=== PATIENT | female | born 1960 | race Caucasian/White ===

== ENCOUNTER 2016-09-16 13:13 | Inpatient (IN) | payer BC ==
[~2016-09-16] VITALS: Ht 162.6 cm; Wt 103.0 kg
[~2016-09-16 13:13] MED LIST: ACET-1256 PO; ASPEC81 PO; BOSW1TAB3 PO; CHOL1000 PO; CINN500T PO; CLON1TAB3 PO; CRAN500C2 PO; ESCI1TAB10 PO; FLUT0.15 NAE; LEVO100T7 PO; LPT40 PO; MULT-506 PO; OMEG10002 PO; PRT/20 PO
[2016-09-16 20:09] VITALS: BP 92/71; PULSE 71; TEMP 36.7; O2SAT 94; Ht 162.6 cm; Wt 103.0 kg
[2016-09-16] MEDS ORDERED: FLUTICASONE PROPIONATE NA SPR 16 GM BTL NAE PRN (20:15)
[2016-09-16] MEDS ORDERED: LEVALBUTEROL/IPRATROPIUM NEB INH PRN (20:15)
[2016-09-16] MEDS ORDERED: MAGNESIUM HYDROXIDE SUSP 30 ML UDC PO PRN (20:15)
[2016-09-16] MEDS ORDERED: POLYETHYLENE (MIRALAX) 17 GM PACK PO PRN (20:15)
[2016-09-16] MEDS ORDERED: ONDANSETRON INJ 2 MG/ML 2 ML VIAL IV PRN (20:15)
[2016-09-16] MEDS ORDERED: NITROGLYCERIN 0.4 MG SL PER TAB CHARGE SL PRN (20:15)
[2016-09-16] MEDS ORDERED: ALUMINUM/MAGNESIUM/SIMETH (MAALOX MAX) 30 ML UDC PO PRN (20:15)
[2016-09-16] MEDS ORDERED: ACETAMINOPHEN 325 MG TAB PO PRN (20:15)
[2016-09-16] MEDS ORDERED: TOPI25TA55 PO ×2 (20:23→20:34)
[2016-09-16] MEDS ORDERED: ALBINS/ INH (20:23)
[2016-09-16] MEDS ORDERED: CLON1TAB3 PO (20:23)
[2016-09-16] MEDS ORDERED: LEVO112T4 PO (20:25)
[2016-09-16] MEDS ORDERED: MAGN1TAB19 PO (20:34)
[2016-09-16] MEDS ORDERED: MECL-91 PO (20:34)
[2016-09-16] MEDS ORDERED: LEVOFLOXACIN 750 MG TAB PO ONE (20:45)
[2016-09-16] MEDS ORDERED: MECLIZINE HCL 25 MG TAB PO PRN (20:45)
[2016-09-16] MEDS ORDERED: IPRATROPIUM BROMIDE NEB SOLN 0.02% 2.5 ML VIAL INH PRN (20:45)
[2016-09-16] MEDS ORDERED: LEVALBUTEROL 0.63MG/3 ML NEB INH PRN (20:45)
[2016-09-16] MEDS ORDERED: ACETAMINOPHEN 500 MG TAB PO PRN (20:45)
[2016-09-16] MEDS ORDERED: TOPIRAMATE 25 MG TAB PO SCH (21:00)
[2016-09-16] MEDS ORDERED: LEVALBUTEROL/IPRATROPIUM NEB INH SCH (21:00)
[2016-09-16] MEDS ORDERED: CLONAZEPAM 1 MG TAB PO SCH (21:00)
--- NOTE | 2016-09-16 21:03 | HISTORY & PHYSICAL EXAMINATION ---
DATE OF ADMISSION: 09/16/2016 CHIEF COMPLAINT: Shortness of breath. 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 The patient says since last Friday, she noticed short of breath and cough with yellowish phlegm, feeling hot. She went to family doctor and she was put on albuterol nebulization, prednisone taper and doxycycline and was sent home and she felt fine for a couple of days and again on Friday, she got again more progressive short of breath and she went to [facility] and she was admitted and she was treated with antibiotics, Z-VAN and steroids and breathing treatments and a CT angiogram of the chest was done on 09/13/2016 which was unremarkable. She has a history of pulmonary nodules, but there was no nodule seen on the CAT scan and there was no PE. The patient started to feel better, but again today morning, again got more short of breath and was advised to come to the [facility] as there is no pulmonary in [facility]. The patient was transferred here. The patient currently resting comfortable. She still has some cough. No fever, no chills, has some headaches when she coughs, no dizziness and some chest pain while she is coughing. No nausea, no vomiting, no abdominal pain. Normal bowel and bladder movements. Appetite is okay. Currently, resting comfortable and hemodynamically stable. ALLERGIES: MELOXICAM. PAST MEDICAL HISTORY: As mentioned above. PAST SURGICAL HISTORY: Bunion surgery, carpal tunnel surgery, colonoscopy, and laparoscopic cholecystectomy. MEDICATIONS: The patient is on prednisone taper ,doxycycline, albuterol nebulization every 4 hours p.r.n., levothyroxine 112 mcg p.o. daily, Protonix 20 mg p.o. daily, Klonopin 0.5 mg in a.m. and 1 mg before bed, Topamax 50 mg at bedtime 25mg tablet in the morning, riboflavin 100 mg p.o. daily, magnesium oxide 400 mg p.o. daily, Antivert 25 mg p.o. t.i.d. p.r.n., aspirin 81 mg p.o. daily, Lexapro 20 mg p.o. daily, multivitamin 1 tablet p.o. daily, fish oil 1000 mg p.o. daily. FAMILY HISTORY: Significant for mother had of cancer. Father of lung cancer. Sister has thyroid problems. Brother has thyroid problems. SOCIAL HISTORY: , never smoked. No alcohol use. No drug use. REVIEW OF SYMPTOMS: As per HPI. Rest of symptoms negative. PHYSICAL EXAMINATION: GENERAL: The patient is of moderate build, not in distress. VITAL SIGNS: Unavailable at this time. HEENT: No pallor, no icterus. Pupils equal, round, reactive to light. NECK: No JVD, no neck masses, no carotid bruits. CARDIOVASCULAR: S1, S2 heard, regular rate and rhythm, no murmur, no gallop. RESPIRATORY SYSTEM: Normal AP diameter. No accessory muscle use. Mild occasional expiratory wheezing, no crackles. ABDOMEN: Soft, bowel sounds present. Nontender. No distention. CENTRAL NERVOUS SYSTEM: Cranial nerves II-XII grossly intact. Nonfocal. EXTREMITIES: No edema, no erythema. LABORATORY DATA: Labs done at [facility] today morning shows WBC of 13, hemoglobin 14.6, hematocrit 43.8, platelets 252. Sodium 142, potassium 4.2, chloride 106, bicarbonate 27, calcium 0.8, BUN 19, creatinine 0.8, glucose 84. ASSESSMENT AND PLAN: This is a 56-year-old female who presents with shortness breath or cough and wheezing. 1. Shortness of breath, cough and wheezing. No history of asthma. No history of smoking . Has some exposure to passive smoking, no exposure to any fumes. She has a history of pulmonary nodules in the CAT scans in June 2016 , but she had another CAT scan done in [facility] on 09/13/2016, which was unremarkable and there was no PE. She also had a cardiac catheterization recently at [facility], which was unremarkable. The patient has some mild expiratory wheezing could be bronchitis. We will place her on IV Solu-Medrol, Levaquin and nebulizers around the clock and p.r.n. Will also get a chest x-ray and EKG and consult pulmonary in the a.m. for further recommendations. 2. Hypothyroidism. Continue her home medication of Synthroid. 3. Depression and generalized anxiety disorder. Continue home medications of Lexapro and Klonopin. 4. History of complex migraine. Continue Topamax. 5. Gastroesophageal reflux disease. Continue Protonix. 6. Deep vein thrombosis prophylaxis. Heparin subQ. 7. Disposition: Monitor on tele floor. Expect to discharge home and follow with the family doctor. Level 1 full code. MTDD
[2016-09-16] MEDS: METHYLPREDNISOLONE IV 40 MG in SYRINGE 0 ML IV SCH (21:06)
[2016-09-16 21:10] VITALS: PULSE 63; O2SAT 98
[2016-09-16] MEDS: IPRATROPIUM BROMIDE NEB SOLN 0.02% 2.5 ML VIAL INH SCH (21:10)
[2016-09-16] MEDS: LEVALBUTEROL 1.25MG/0.5ML NEB INH SCH (21:10)
[2016-09-16 21:21] LABS: HEMATOCRIT 43.6 % (37-47); MEAN CORPUSCULAR HEMOGLOBIN 28.5 pg (25-34); MEAN CORPUSCULAR HGB CONC 32.8 g/dl (32-36); MEAN PLATELET VOLUME 10.3 fL (7.4-10.4); PLATELET COUNT 254 K/uL (130-400); RED BLOOD COUNT 5.01 M/uL (4.2-5.4); WHITE BLOOD COUNT 10.67 K/uL (4.8-10.8)
[2016-09-16] MEDS ORDERED: PNEUMOCOCCAL POLYSACCHARIDES 25 MCG/0.5 ML VIAL/SYR IM. ONE (21:30)
[2016-09-16] MEDS ORDERED: PNEUMOCOCCAL ADMINISTRATION CHARGE ONE (21:30)
[2016-09-16 21:32] LABS: PARTIAL THROMBOPLASTIN RATIO 0.9; PROTHROMBIN TIME (PATIENT) 10.5 SECONDS (9.0-12.0)
[2016-09-16 21:47] LABS: CREATININE 0.94 mg/dl (0.60-1.20)
--- NOTE | 2016-09-16 22:09 | DIAGNOSTIC IMAGING REPORT ---
SINGLE VIEW CHEST CLINICAL HISTORY: Cough and dyspnea. FINDINGS: An AP, portable, upright chest radiograph is compared to study dated 01/28/2016. The examination is degraded by portable technique, large body habitus, and patient rotation. The cardiomediastinal silhouette is unremarkable. There is mild bibasilar atelectasis. The lungs and pleural spaces are otherwise clear. No pneumothorax is seen. The skeletal structures are osteopenic. The bony thorax is grossly intact. Cholecystectomy clips are identified in the right upper quadrant. IMPRESSION: No active disease in the chest. Electronically signed by: Bertin Ravi M.D. 09/16/2016 10:08 PM Dictated Date/Time: 09/16/2016 10:07 PM
[2016-09-16 23:46] VITALS: BP 121/78; PULSE 65; TEMP 37.3; O2SAT 95
[2016-09-17] VITALS (7 sets, daily range): BP systolic 98–115; BP diastolic 61–93; PULSE 65–93; TEMP 36.5–36.9; O2SAT 91–98
[2016-09-17] MEDS: IPRATROPIUM BROMIDE NEB SOLN 0.02% 2.5 ML VIAL INH SCH ×3 (01:49→14:09)
[2016-09-17] MEDS: LEVALBUTEROL 1.25MG/0.5ML NEB INH SCH ×3 (01:49→14:09)
[2016-09-17 05:59] LABS: BASO % 0.3 %; BASO ABS # 0.04 K/uL (0-0.2); COMPLETE YES; HEMATOCRIT 45.6 % (37-47); IG% 3.8 %; LYMPH % 8.6 %; LYMPH ABS # 1.02 K/uL (1.2-3.4); MEAN CELL VOLUME 87.7 fL (80-100); MEAN CORPUSCULAR HGB CONC 33.1 g/dl (32-36); MEAN PLATELET VOLUME 10.6 fL (7.4-10.4); MONO % 3.9 %; NEUT % 83.4 %; PLATELET COUNT 246 K/uL (130-400); WHITE BLOOD COUNT 11.85 K/uL (4.8-10.8)
[2016-09-17] MEDS ORDERED: LEVOTHYROXINE 112 MCG TAB PO SCH (06:00)
[2016-09-17 06:42] LABS: BUN/CREATININE RATIO 23.7 (10-20); CREATININE 0.83 mg/dl (0.60-1.20); MAGNESIUM 2.7 mg/dl (1.8-2.4)
[2016-09-17] MEDS: METHYLPREDNISOLONE IV 40 MG in SYRINGE 0 ML IV SCH (08:40)
[2016-09-17] MEDS ORDERED: CLONAZEPAM 0.5 MG TAB PO SCH (09:00)
[2016-09-17] MEDS ORDERED: ASPIRIN 81 MG ECTAB PO SCH (09:00)
[2016-09-17] MEDS ORDERED: ATORVASTATIN 40 MG TAB PO SCH (09:00)
[2016-09-17] MEDS ORDERED: ESCITALOPRAM OXALATE 20 MG TAB PO SCH (09:00)
[2016-09-17] MEDS ORDERED: HEPARIN SOD 5000 UNIT/0.5 ML CARP SQ SCH (09:00)
[2016-09-17] MEDS ORDERED: MAGNESIUM OXIDE 400 MG TAB PO SCH (09:00)
[2016-09-17] MEDS ORDERED: OMEGA-3 (PURIFIED FISH OIL) 1 GM CAP PO SCH (09:00)
[2016-09-17] MEDS ORDERED: MULTIVITAMIN TAB PO SCH (09:00)
[2016-09-17] MEDS ORDERED: TOPIRAMATE 25 MG TAB PO SCH (09:00)
[2016-09-17] MEDS ORDERED: CHOLECALCIFEROL 1000 INTER.UNIT TAB PO SCH (09:00)
[2016-09-17] MEDS ORDERED: PANTOprazole SOD 40 MG TAB PO SCH (09:00)
--- NOTE | 2016-09-17 12:17 | Consultant Recommendations ---
Dermatologist And Dermatopathologist Recommendations Date of Service September 17, 2016. Dermatologist And Dermatopathologist Recommendations Followup at clinic in [place] at [facility] on October 07 at 12:00. Nebulizer BID routinely and then prn. Prednisone starting at 60 mg and tapering by 5 mg every 2 days. Off work until Friday09-23-16. PFT as an outpatient.
--- NOTE | 2016-09-17 13:16 | CONSULTATION REPORT ---
DATE OF CONSULTATION: 09/17/2016 DATE OF CONSULTATION: 09/17/2016. REASON FOR CONSULTATION: Asthma exacerbation. HISTORY OF PRESENT ILLNESS: The patient is a 56-year-old female who does not really had any significant pulmonary past medical history. She did have a pulmonary nodule discovered on a CAT scan in June of this year. She did see Sole Wiley, certified registered nurse practitioner with [facility] for evaluation for this. This was a one-time visit. She has not had any followup with her. The patient reports that approximately 2 weeks ago she started with increased shortness of breath, increased cough, congestion and feeling warmth. She eventually presented to [facility] Emergency Room and was admitted to [facility]. She was started on IV steroids, IV antibiotics and aggressive pulmonary treatment. She started to improve and on 09/12/2016 she was feeling well, was converted over to oral prednisone. However, she worsened fairly quickly and hospitalization was continued. She ended up having a CT angiogram done on 09/13/2016, there is no evidence of nodule, no evidence of PE, no abnormality. Because of her persistent symptoms on 09/16/2016 patient was transferred to [facility] for further evaluation and pulmonary workup. The patient states that when she was at [facility] she was on azithromycin, steroids and nebulizer and nebulizer was in the form of albuterol that she remembers. She states that she got here yesterday and had significant coughing and actually coughed up at her estimation about half cup of very thick, almost hard junk from her chest. She states that following that her breathing has been very good. She states that prior to that she was only ever able to cough up small amounts of a watery thin yellow mucus. She states that after she was able to cough up a large amount of mucus her wheezing improved, her shortness of breath improved and she was much better. She states that she has been up walking around today. She has been doing activity without any difficulty. She has not had any oxygen on and her oxygen saturations have been remaining in the 95-98% range. The patient reports also that she was having some chest pain on the left side when she would take a deep breath in and would cough. She states that the chest pain has resolved as well. She no longer has fever, chills, no sweats. She no longer has any other difficulty. She feels that she is back to her baseline. In regards to cardiac history she has had the shortness of breath and chest pain for several weeks. She did have a cardiac workup including a stress test which showed some abnormality. She ended up having a cardiac catheterization at [facility] with Dr. Ayon. This was unremarkable. She also had an echocardiogram in August which showed an ejection fraction of 60%. No atrial or ventricular abnormalities. Trace mitral regurgitation. At this time, the patient feels that she is doing well. She has no other concerns or problems at this time. No headache. No lightheadedness, no dizziness, no syncope, no fever, no chills, no sweats, no further shortness of breath, no chest pain, no palpitations, no abdominal pain, no nausea or vomiting, no indigestion or heartburn. No difficulty swallowing. She has no difficulty with choking when she swallows. No change in her bowels. No difficulty voiding. No swelling in her extremities. She states that she has never really been worked up for any breathing problems. She states that approximately a year ago she started having some increased episodes of bronchitis. She has never had a pulmonary function test done. She states that she was never a smoker. She states that her mom does smoke. 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 She thinks that this is triggering some of the recurrent bronchitis episodes that she has had. She states that [place] and the dust and pesticides seem to bother her some as well. PAST MEDICAL HISTORY: Includes restless leg syndrome, hyperlipidemia, hypothyroidism, history of Hilary's thyroiditis, obesity, depression, complicated migraines, history of pulmonary nodule although on most recent CT angiogram of the chest there is no evidence of any nodularity, generalized anxiety disorder. PAST SURGICAL HISTORY: Includes bunionectomy, carpal tunnel surgery, colonoscopy and laparoscopic cholecystectomy. FAMILY HISTORY: Includes lung cancer in her father. Thyroid cancer. Unknown cancer in her mother. SOCIAL HISTORY: The patient is a lifelong nonsmoker, no alcohol use, no drug use. She does have some environmental disorders as discussed earlier. ALLERGIES: Meloxicam. HOME MEDICATIONS: As per listed in Dr. Warner's history and physical. REVIEW OF SYSTEMS: As above, otherwise unremarkable. PHYSICAL EXAMINATION: GENERAL: The patient is a 56-year-old female sitting at bedside. She is obese. She is alert and oriented x3. Mood is good. Affect is good. VITAL SIGNS: Temp 36.9, pulse 72, respirations 18, blood pressure is 115/93, pulse ox 96% on room air. She is able to complete sentences without becoming dyspneic. HEAD, EYES, EARS, NOSE, AND THROAT: Normocephalic, atraumatic. Pupils equal, round and react to light and accommodation. Extraocular movements are intact. [place] moist gingival and buccal mucosa. NECK: Supple. No mass, no adenopathy, no bruit. CHEST: Diminished breath sounds bilaterally. There is no wheezing, no rales, no rhonchi. She has good air movement throughout. CARDIOVASCULAR: Regular rate and rhythm. No murmurs, gallops or rubs. ABDOMEN: Bowel sounds are present. Abdomen soft, nontender. No guarding, rigidity or organomegaly. EXTREMITIES: No erythema or edema. NEUROLOGIC: Cranial nerves II through XII are intact. No focal deficit noted. LABORATORY DATA: Shows a white count of 11,000, H\T\H 15.1 and 45.6, platelet count of 246,000. BUN 20, creatinine 0.83. Chest x-ray done on admission is unremarkable. IMPRESSION: This is a 56-year-old female who was transferred here from [facility] due to some respiratory difficulties. At this point, I suspect that the patient has either reactive airway disease or has adult onset asthma. The patient will need complete pulmonary function testing to evaluate this further. In regards to her acute episode, after talking with the patient I feel that patient had mucus plugging which she was able to self expectorate late yesterday. Following the expectoration of the mucus she has had no further wheezing. She has had no further need for oxygen. Her oxygen saturations have remained in the upper 90% range. At this point, patient is asking to go home and I see no reason from a pulmonary standpoint that the patient cannot go home. I would recommend that the patient be placed on 60 mg of prednisone and taper by 5 mg every 2 days. Would recommend the patient have a 2-step done just for purposes of being thorough, though my suspicion is that she will not desaturate. I did discuss with the patient about following up with Sole Wiley, certified registered nurse practitioner for [facility] and pulmonary, however the patient would rather follow up with us in the [place] clinic as she is from the area and she also works at [facility]. Because of this she will be followed up in approximately 2-3 weeks. Would like for her to have pulmonary function test done prior to this if possible. If not, we will schedule her for followup. She is agreeable to this. I did recommend that she continue with the nebulizer use twice daily routinely and as needed. She is to contact the office if there is any question or problem. Will continue to follow the patient. Patient and plan reviewed. I agree with the current assessment and plan. LULA
--- NOTE | 2016-09-17 14:25 | Discharge Instructions ---
Discharge Instructions Date of Service September 17, 2016. Admission Reason for Admission: Asthma Exacerbation Discharge Discharge Diagnosis / Problem: Asthma exacerbation Discharge Goals Goal(s): Prevent Disease Progression Activity Recommendations Activity Limitations: per Instructions/Follow-up section . Instructions / Follow-Up Instructions / Follow-Up Please take all medications as instructed. Followup at clinic in [place] at [facility] on October 07 at 12:00. Nebulizer BID routinely and then prn. Prednisone starting at 60 mg and tapering by 5 mg every 2 days. Off work until Friday09-23-16. PFT as an outpatient. You have a follow-up appointment with Dr. Kapoor on 09/18 at 4:15 pm. Please bring all paperwork from this hospitalization. It was a pleasure taking care of you! Call if you have any questions or problems. You can reach a [facility] hospitalist on duty at [facility] 24 hours a day by calling [phone]. Take care of yourself. Savannah Osuna, [facility] Hospitalist Current Hospital Diet Patient's current hospital diet: AHA Diet (Heart Healthy) Discharge Diet Recommended Diet: AHA Diet (Heart Healthy) Pending Studies Studies pending at discharge: no Medical Emergencies . Who to Call and When: Medical Emergencies: If at any time you feel your situation is an emergency, please call 911 immediately. . Non-Emergent Contact Non-Emergency issues call your: Primary Care Provider . . "Provider Documentation" section prepared by Savannah Osuna. . Technical Service Specialist Recommendations Technical Service Specialist Recommendations: Followup at clinic in [place] at [facility] on October 07 at 12:00. Nebulizer BID routinely and then prn. Prednisone starting at 60 mg and tapering by 5 mg every 2 days. Off work until Friday09-23-16. PFT as an outpatient. VTE Core Measure Inpt VTE Proph given/why not?: Unfractionated heparin SQ
[2016-09-17] MEDS ORDERED: PRD20 PO (14:29)
[2016-09-17] MEDS ORDERED: PRED-301 PO (14:29)
--- NOTE | 2016-09-17 14:33 | Discharge Summary ---
Discharge Summary Date of Service September 17, 2016. Discharge Summary Admission Date: September 16, 2016 at 20:20 Discharge Date: September 17, 2016 Discharge Disposition: Home Principal Diagnosis: Shortness of breath 2/2 acute asthma exacerbation vs reactive airway disease Hypothyroidism Depression/Anxiety h/o migraines GERD Procedures: None. Vaccinations: None. Consultations: Pulmonary Pending Studies/Follow-Up: see instructions below Medication Reconciliation New Medications: Prednisone (Prednisone) 20 Mg Tab 1 TAB PO UD for 24 Days, #36 TAB Use as instructed by physician-taper starts at 60mg then decrease by 5mg every two days until finished. Prednisone (Prednisone) 5 Mg Tab 1 TAB PO UD for 24 Days, #40 TAB Use as instructed by physician-taper starts at 60mg then decrease by 5mg every two days until finished. Continued Medications: Acetaminophen (Tylenol) 500 Mg Tab 1000 MG PO Q4 PRN for Headache, TAB Albuterol Sulf (Proventil 0.083% 2.5MG/3ML) 2.5 Mg/3 Ml Nebu 2.5 MG INH Q4H PRN for SOB/Wheezing, #1 EA Aspirin (Aspirin EC Low Dose) 81 Mg Ectab 81 MG PO QAM, #30 TABS Atorvastatin (Atorvastatin Calcium) 40 Mg Tab 80 MG PO QAM for 30 Days, #60 TAB Tptzbkvzi-Xjvwcqeopcg-Hljeevy (Glucosamine Complex) 1 Tab Tab 1500 MG PO DAILY Cholecalciferol (Vitamin D3) 1,000 Unit Tab 1 TAB PO DAILY for 90 Days, #90 TAB 3 Refills Cinnamon (Cinnamon) 500 Mg Tab 1000 MG PO DAILY Clonazepam (Klonopin) 1 Mg Tab 1 MG PO UD, #20 TAB half tab in am and one tab hs. Cranberry (Vaccinium Macrocarp (Cranberry) 500 Mg Cap 1000 MG PO DAILY Escitalopram Oxalate (Lexapro) 20 Mg Tab 20 MG PO DAILY, TAB Fluticasone Propionate (Nasal) (Flonase Allergy Relief) 50 Mcg/Act Spr 2 SPRAYS SHAWNA DAILY PRN for Nasal Congestion Levothyroxine Sodium (Levothyroxine Sodium) 112 Mcg Tab 1 TAB PO DAILY for 90 Days, #90 TAB 1 Refill Magnesium Oxide (Mg Supplement (Magnesium Oxide) 400 Mg Tab 400 MG PO DAILY, #30 Meclizine HCl (Meclizine 25) 25 Mg Tab 25 MG PO TID PRN for Dizziness or Vertigo, #20 Multivitamin (Multivitamin) Tab 1 TAB PO DAILY, TAB Bowie-3 Fatty Acids (Fish Oil) 1,000 Mg Cap 1000 MG PO DAILY Pantoprazole (Protonix) 20 Mg Tab 20 MG PO DAILY, #30 TAB Topiramate (Topamax) 25 Mg Tab 1 TAB PO UD for 30 Days, TAB 1 Refill TOPAMAX 25MG IN AM AND 50MG IN PM Admission Information HPI (per Admitting provider): HISTORY OF PRESENT ILLNESS: This is a 56-year-old female with past medical history significant for restless legs syndrome, hyperlipidemia, 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 The patient says since last Friday, she noticed short of breath and cough with yellowish phlegm, feeling hot. She went to family doctor and she was put on albuterol nebulization, prednisone taper and doxycycline and was sent home and she felt fine for a couple of days and again on Friday, she got again more progressive short of breath and she went to [facility] and she was admitted and she was treated with antibiotics, Z-VAN and steroids and breathing treatments and a CT angiogram of the chest was done on 09/13/2016 which was unremarkable. She has a history of pulmonary nodules, but there was no nodule seen on the CAT scan and there was no PE. The patient started to feel better, but again today morning, again got more short of breath and was advised to come to the [facility] as there is no pulmonary in [facility]. The patient was transferred here. The patient currently resting comfortable. She still has some cough. No fever, no chills, has some headaches when she coughs, no dizziness and some chest pain while she is coughing. No nausea, no vomiting, no abdominal pain. Normal bowel and bladder movements. Appetite is okay. Currently, resting comfortable and hemodynamically stable. Physical Exam (per Admitting): PHYSICAL EXAMINATION: GENERAL: The patient is of moderate build, not in distress. VITAL SIGNS: Unavailable at this time. HEENT: No pallor, no icterus. Pupils equal, round, reactive to light. NECK: No JVD, no neck masses, no carotid bruits. CARDIOVASCULAR: S1, S2 heard, regular rate and rhythm, no murmur, no gallop. RESPIRATORY SYSTEM: Normal AP diameter. No accessory muscle use. Mild occasional expiratory wheezing, no crackles. ABDOMEN: Soft, bowel sounds present. Nontender. No distention. CENTRAL NERVOUS SYSTEM: Cranial nerves II-XII grossly intact. Nonfocal. EXTREMITIES: No edema, no erythema. Hospital Course The patient was admitted to medicine and pulm was consulted. The thought was she had either reactive airway disease or adult onset asthma. Outpatient PFTs were recommended. Her acute episode was felt to be related to mucous plugging which she was able to self-expectorate. Following this there was no further hypoxia or wheezing. She was given a prednisone taper and nebulizer use was recommended twice daily going home. She was discharged in stable condition. Total time spent on discharge = 60 minutes This includes examination of the patient, discharge planning, medication reconciliation, and communication with other providers. Discharge Instructions Discharge Instructions Date of Service September 17, 2016. Admission Reason for Admission: Asthma Exacerbation Discharge Discharge Diagnosis / Problem: Asthma exacerbation Discharge Goals Goal(s): Prevent Disease Progression Activity Recommendations Activity Limitations: per Instructions/Follow-up section . Instructions / Follow-Up Instructions / Follow-Up Please take all medications as instructed. Followup at clinic in [place] at [facility] on October 07 at 12:00. Nebulizer BID routinely and then prn. Prednisone starting at 60 mg and tapering by 5 mg every 2 days. Off work until Friday09-23-16. PFT as an outpatient. You have a follow-up appointment with Dr. Kapoor on 09/18 at 4:15 pm. Please bring all paperwork from this hospitalization. It was a pleasure taking care of you! Call if you have any questions or problems. You can reach a [facility] hospitalist on duty at [facility] 24 hours a day by calling [phone]. Take care of yourself. Savannah Osuna, [facility] Hospitalist Additional Copies To Faisal Kapoor M.D.; Tonio Galindo PA-C
[2016-09-17] MEDS ORDERED: LEVOFLOXACIN 750 MG TAB PO SCH (21:00)
== END 2016-09-17 16:00 | disposition home or self-care (01) | DRG 203 ==
LOC: UNDOADMIN 19:53 → C.2E 19:53
PROVIDERS: ADMIT Hospitalist; ATTEND Hospitalist
DX: J45.901 Unspecified asthma with (acute) exacerbation (principal); G25.81 Restless legs syndrome; E78.5 Hyperlipidemia, unspecified; E03.9 Hypothyroidism, unspecified; E66.9 Obesity, unspecified; F32.9 Major depressive disorder, single episode, unspecified; F41.1 Generalized anxiety disorder; R91.8 Other nonspecific abnormal finding of lung field; K21.9 Gastro-esophageal reflux disease without esophagitis; Z68.30 Body mass index [BMI] 30.0-30.9, adult